=== PATIENT | female | born 1985 | race Asian ===

== ENCOUNTER 2020-04-19 12:03 | Outpatient (CLI) | payer OTHER ==
[2020-04-19 12:30] VITALS: BP 98/50
--- NOTE | 2020-04-20 12:58 | PROCEDURE REPORT ---
- HPI Diagnosis/Indication for NST: Intrauterine growth restriction Current EDU 05/25/20 Gestation 34 Weeks and 6 Days 2 Para 1 Vital Signs Temperature 36.7 C 04/19/20 12:16 Heart Rate 71 04/19/20 12:16 Respiratory Rate 17 04/19/20 12:16 Blood Pressure 98/50 L 04/19/20 12:16 O2 Saturation 98 04/19/20 12:16 Temperature 36.7 C 04/19/20 12:16 Heart Rate 71 04/19/20 12:16 Respiratory Rate 17 04/19/20 12:16 Blood Pressure 98/50 L 04/19/20 12:16 O2 Saturation 98 04/19/20 12:16 - NST Procedure NST Procedure Start Date 04/19/20 Start Time 12:13 Stop Time 12:33 Vibroacoustic Stimulation Used No Patient States Movement Yes - Results and Plan Plan: Radha is a 34yo @ 34.6wks gestation who presents to [facility] for scheduled NST. She reports feeling well. She denies vaginal bleeding, leakage of fluid or contractions and she reports +FM. She denies concerns or complaints today. NST performed 04/19/2020 NST read 04/19/2020 NST reactive. FHR baseline 130s, moderate variability, + accels, no decels No contractions appreciated via tocometry Patient released home with precautions. Keep scheduled visit in the office. Continue with twice weekly NST and once week BPPs as scheduled. FINAL DIAGNOSIS: Suspected IUGR
== END 2020-04-19 12:35 | disposition home or self-care (01) ==
LOC: WFO 12:03 → FBP 12:08 → WFO 12:35
PROVIDERS: ATTEND Nurse Practitioner Obstetrics & Gynecology
DX: O36.5930 Maternal care for other known or suspected poor fetal growth, third trimester, not applicable or unspecified (principal); Z3A.34 34 weeks gestation of pregnancy
CPT/HCPCS: 59025

== ENCOUNTER 2020-04-22 12:02 | Outpatient (CLI) | payer OTHER ==
[2020-04-22 12:20] VITALS: BP 94/55
--- NOTE | 2020-04-22 13:06 | PROCEDURE REPORT ---
- HPI Current EDU 05/25/20 Gestation 35 Weeks and 2 Days 2 Para 1 Vital Signs Temperature 36.6 C 04/22/20 12:16 Heart Rate 75 04/22/20 12:16 Respiratory Rate 16 04/22/20 12:16 Blood Pressure 94/55 L 04/22/20 12:16 O2 Saturation 100 04/22/20 12:16 Temperature 36.6 C 04/22/20 12:16 Heart Rate 75 04/22/20 12:16 Respiratory Rate 16 04/22/20 12:16 Blood Pressure 94/55 L 04/22/20 12:16 O2 Saturation 100 04/22/20 12:16 - NST Procedure NST Procedure Start Date 04/22/20 Start Time 12:15 Stop Time 12:40 Vibroacoustic Stimulation Used No Patient States Movement Yes - Results and Plan Plan: Radha is a 34yo @ 35.2wks gestation who presents to [facility] for scheduled NST. She reports feeling well. She denies vaginal bleeding, leakage of fluid or contractions and she reports +FM. She denies concerns or complaints today. NST performed 04/22/2020 NST read 04/22/2020 NST reactive. FHR baseline 125s, moderate variability, + accels, no decels No contractions appreciated via tocometry Patient released home with precautions. Keep scheduled visit in the office. Continue with twice weekly NST and once week BPPs as scheduled. FINAL DIAGNOSIS: Suspected IUGR
== END 2020-04-22 12:45 | disposition home or self-care (01) ==
LOC: WFO 12:02 → FBP 12:05 → WFO 12:45
PROVIDERS: ATTEND Nurse Practitioner Obstetrics & Gynecology
DX: O36.5930 Maternal care for other known or suspected poor fetal growth, third trimester, not applicable or unspecified (principal); Z3A.35 35 weeks gestation of pregnancy
CPT/HCPCS: 59025

== ENCOUNTER 2020-04-26 15:23 | Outpatient (CLI) | payer OTHER ==
--- NOTE | 2020-04-27 12:33 | Ultrasound Report ---
PROCEDURE: OB F/U or Repeat INDICATIONS: SUSPECTED IUGR OUTSIDE/PRIOR DATING DATA: Last menstrual period (LMP): Not available. LMP-based estimated date of delivery (BENNY): Not available. First dating scan (date and location): 11/05/2019. This study is not available for review. The jayda available documentation report is 01/05/2020 with a ultrasound gestational age from that study rep orted as 05/30/2020. Estimated date of delivery (BENNY) from first dating scan: 05/25/2020. 05/30/2020 as stated above. TECHNIQUE: Real-time scanning was performed of the fetus, with image documentation and biometric measurements. Endovaginal scanning: Not performed COMPARISON: None available FINDINGS: General: A single living intrauterine gestation is present. Presentation: Vertex Placenta: Placental position is posterior, without previa. Amniotic fluid index: 7.0 cm, , lower 3rd percentile for gestational age. Largest pocket located is 5 cm. heart rate: 160 beats per minute. Maternal cervical canal not well seen due to vertex presentation.. biometrics: Biparietal diameter: 8.5 cm, 34 weeks 1 day Head circumference: 30.5 cm, 34 weeks 0 days Abdominal circumference: 29.8 cm, 33 weeks 6 days Femur length: 6.6 cm, 34 weeks 0 days Estimated gestational age from initial scan: 35 weeks 1 day. Composite gestational age from present scan: 34 weeks 0 days Estimated weight and percentile: 2304 g, 16.7 percentile Measurement variability in biometric dating: +/- 10 days from 12-20 weeks gestation, +/- 2 weeks from 20-30 weeks gestation, +/- 3 weeks at 30 weeks gestation or more. Other: Not applicable . IMPRESSION: Oligohydramnios, with current amniotic fluid index of 7.0 cm, at the lower 3rd percentil e. The growth calculations placed the current estimated weight at 2304 g, at the 16.7 per centile. The information related to growth and amniotic fluid index was personally conveyed to the co ordinating nurse provider, Nicole. Reviewed by: Tim Lima MD on 04/27/2020 12:31 PM PST Approved by: Tim Lima MD on 04/27/2020 12:31 PM PST Station ID: [id number]
== END 2020-04-26 15:24 | disposition home or self-care (01) ==
LOC: DI 15:23
PROVIDERS: ATTEND Advanced Practice Midwife
DX: Z36.4 Encounter for antenatal screening for fetal growth retardation (principal); O41.03X0 Oligohydramnios, third trimester, not applicable or unspecified; Z3A.34 34 weeks gestation of pregnancy

== ENCOUNTER 2020-05-06 08:00 | Outpatient (CLI) | payer OTHER | END 2020-05-06 23:59 | disposition home or self-care (01) | LOC: LAB.R 08:00 | PROVIDERS: ATTEND Advanced Practice Midwife | DX: Z34.90 Encounter for supervision of normal pregnancy, unspecified, unspecified trimester (principal); Z36.85 Encounter for antenatal screening for Streptococcus B | CPT/HCPCS: 87797 ==

== ENCOUNTER 2020-05-26 05:36 | Inpatient (IN) | payer OTHER ==
[2020-05-26] MEDS ORDERED: METHYLERGONOVINE 0.2 MG/ML VIAL IM PRN (05:50)
[2020-05-26] MEDS ORDERED: CARBOPROST TROMETHAMINE 250 MCG/ML AMP IM PRN (05:50)
[2020-05-26] MEDS ORDERED: miSOPROStoL 200 MCG TABLET BC PRN (05:50)
[2020-05-26] MEDS ORDERED: OXYTOCIN 10 UNIT/ML VIAL IM PRN (05:50)
[2020-05-26] MEDS ORDERED: SODIUM CHLORIDE FLUSH 0.9% 10 ML SYRINGE IVP PRN (05:50)
[2020-05-26] MEDS ORDERED: LIDOCAINE-MPF 1% 30 ML VIAL ID PRN (05:50)
[2020-05-26] MEDS ORDERED: OXYTOCIN/SODIUM CHLORIDE 500 ML IV PRN (05:50)
[2020-05-26] MEDS ORDERED: TRANEXAMIC ACID IN NACL 1,000 MG/100 ML BAG IV PRN (05:50)
[2020-05-26] MEDS ORDERED: LACTATED RINGERS 1,000 ML IV SCH (06:00)
[2020-05-26 06:26] LABS: BASOPHILS % (AUTO) 0.3 %; EOSINOPHILS # (AUTO) 0.1 10^3/uL (0.0-0.7); EOSINOPHILS % (AUTO) 0.3 %; HCT - HEMATOCRIT 42.4 % (37.0-47.0); HGB - HEMOGLOBIN 13.5 g/dL (12.0-16.0); LYMPHOCYTES # (AUTO) 1.9 10^3/uL (1.5-3.5); LYMPHOCYTES % (AUTO) 12.5 %; MEAN CORPUSCULAR HEMOGLOBIN 26.9 pg (27.0-31.0); MEAN CORPUSCULAR HGB CONC 31.8 g/dL (32.0-36.0); MEAN CORPUSCULAR VOLUME 84.6 fL (81.0-99.0); MEAN PLATELET VOLUME 10.6 fL (7.9-10.8); MONOCYTES # (AUTO) 0.6 10^3/uL (0.0-1.0); NEUTROPHILS # (AUTO) 12.4 10^3/uL (1.5-6.6); NEUTROPHILS % (AUTO) 82.4 %; PLT - PLATELET COUNT 198 10^3/uL (130-450); RED BLOOD COUNT 5.01 10^6/uL (4.20-5.40); RED CELL DISTRIBUTION WIDTH 13.5 % (12.0-15.0); WHITE BLOOD COUNT 15.1 x10^3/uL (4.8-10.8)
--- NOTE | 2020-05-26 07:03 | HISTORY & PHYSICAL EXAMINATION ---
Admit History - Visit Reason Visit Reason: Contractions - : 2 Parity: 1 Premature: 0 Ectopic: 0 : 0 Risk/History: positive: None Complications This : positive: None Smoking Status: Never smoker - Mother's Labs Mother's Blood Type: positive: A Mother's RH: positive: Positive GBS: positive: Group B Step Negative Rubella Status: positive: Immune - Other Maternal History Other Maternal History: -34yo at 39.3wks gestation who presents to Labor and Delivery with reports of contractions that started last night and are every 3-5mins -Reports movement -Denies VB/LOF - care with [facility] which has been adequate after samantha from [facility] at 33.0wks - Complications *Suspected IUGR- with adjusted dates -Dating Criteria LMP 08/18/2020 - BENNY 05/25/2020 Initial US at 10.3 weeks for BENNY 05/29/2020 -OB Hx *G1: 07/03/2018 [facility] VAVD for NR FHT 6#12oz. Female. -Medications * vitamin-daily -Allergies *NKDA -Medical History *Non contributory -Surgical History *None -Family History *Father- HTN *Mother- DM -Social History *Non contributory - Labs, Immunizations, and Findings LMP 08/18/2020 - BENNY 05/25/2020 Initial US at 10.3 weeks for BENNY 05/29/2020 A pos/Rubella immune VZV immune Gentic testing: AFP neg, CF neg FAS: Posterior placenta. 3VC. AF wnl. Incomplete views F/u completion FAS WNL Growth and MAJOR due to size<dates MAJOR 8.9 (largest pocket >5cm)-WNL; EFW 22%tile Glucola 114 [place] GBS at 36.3 weeks -NEG HSV: denies self and partner Breast pump [place] MOD: . Husb: Lee. Desires unmedicated delivery, had with first child (daughter 21months). Boy- Raul pp contraception: POPs PAP:02/2017- awaiting pathology- FAYE resent on 05/05/2020 -SVE per RN /-1/intact at 0548 -Vertex by digital exam - Physical Exam: Normocephalic, atraumatic Abdomen gravid, soft, nontender Edema- none Psych- wnl -FHTs per flowsheet -Assessment *34yo at 39.3wks gestation in active labor * Heart Tones- Category II due to intermittent variable decelerations -Plan *Admit to L&D *Monitoring- Continuous *Comfort measures available- position changes, whirlpool tub, fentanyl, and epidural per maternal preference *Diet/Activity- per maternal preference *Anticipate Meds/Allgy - Allergies Allergies/Adverse Reactions: Allergies Allergy/AdvReac Type Severity Reaction Status Date / Time No Known Drug Allergies Allergy Verified 05/26/20 06:21 Review of Systems - All Other Systems All Other Systems: reports: Reviewed and negative Physical - Abdominal Exam Vital Signs: Temp Pulse Resp BP Pulse Ox 36.7 C 70 20 126/82 H 05/26/20 06:22 05/26/20 06:22 05/26/20 06:22 05/26/20 06:22 Contraction Frequency (min/apart): 2-4 Contraction Intensity: positive: Moderate Uterine Resting Tone: positive: Soft - Monitoring Heart Rate Baseline: 125 Strip Review: positive: Category II (moderate variability, accels 15x15, intermittent variable decelerations) - Presentation Presentation: positive: Vertex - Vaginal Exam Membranes: positive: Membranes intact Dilation (in cm): 6 Effacement (%): 90 Station: positive: -1 Plan for Labor - Plan For Labor I expect patient to be DC'd or transferred within 96 hours.: Yes
[2020-05-26] MEDS ORDERED: SODIUM CHLORIDE FLUSH 0.9% 10 ML SYRINGE IVP SCH (09:00)
[2020-05-26] MEDS ORDERED: diphenhydrAMINE INJ 50 MG/ML VIAL IVP PRN (10:12)
[2020-05-26] MEDS ORDERED: WITCH HAZEL/GLYCERIN 1 PAD TOP PRN (10:59)
[2020-05-26] MEDS ORDERED: HYDROCORTISONE 1% CREAM 28 GM TUBE PR PRN (10:59)
--- NOTE | 2020-05-26 11:05 | DELIVERY NOTE ---
Delivery Note - Labor Labor: positive: Spontaneous - Delivery Method Delivery Method: positive: Spontaneous vaginal delivery - Nuchal Cord Nuchal Cord: positive: Present (tight x1, sommersaulted) - Amniotic Fluid Description Amniotic Fluid Description: positive: Clear - Episiotomy Type Episiotomy Type: positive: None - Laceration Laceration: positive: Perineal (superficial, no repair indicated) - Delivery Outcome Delivery Outcome: positive: Livebirth - [place]: positive: Placed in direct skin contact with mother, Stimulated, Warmer used sex: positive: Male : 2 : 9 - Cord Cord: positive: 3 vessels - Placenta Placenta: positive: Intact, Spontaneous - Estimated Blood Loss Estimated Blood Loss (in cc): 100 - Post Delivery Events Post Delivery Events: positive: No post delivery events - Delivery Comments (Free Text/Narrative) Delivery Comments (Free Text/Narrative): Note: Labor: This 39.3 year old, , @39.3wks gestation by 10.3 week Ultrasound, confirmed by LMP, presented @ 0530 in active labor. Cervix was6/90/-1 and vertex. FHR pattern demonstrated 125 baseline in a Category II pattern, with moderate variability but intermittent variable decelerations. Normal labor course. SROM occurred @ 0742 and amount and color of fluid were noted to be small and clear. She progressed to complete and began spontaneously pushing at 1030. Baby experienced a prolonged bradycardia in the 90-110 range until . Peds to bedside for delivery. : Normal of a 3060gm male , named Raul, on 05/26/2020 @ 1043. Nuchal tight x1, baby sommersaulted through.The was placed on maternal abdomen, stimulated, dried and after quick double clamp by CNM and cutting of the cord by FOB, baby was brought to the warmer by Peds. Apgars 2 at one minute and 9 at five minutes. Pitocin administered via IV for hemostasis. Fundal massage and gentle cord traction applied for active third stage management. Cord blood was obtained. Placenta delivered spontaneously and intact at 1048. Three vessel cord. EBL 100mL. Fourth Stage: Uterine fundus firm and without excessive bleeding. The perineum, vagina, and cervix were inspected and found to be intact with a small superficial perineal opening which did not indicate repair. Vaginal examination revealed a swollen and bruised cervical lip. initiated. Family bonding well. Both mother and baby are in stable condition.
[2020-05-26] MEDS: IBUPROFEN 600 MG TABLET PO SCH ×2 (14:01→20:32)
[2020-05-26] MEDS: ACETAMINOPHEN 500 MG TABLET PO SCH ×2 (14:01→22:03)
[2020-05-26] MEDS: DOCUSATE SODIUM 100 MG CAPSULE PO PRN (22:03)
[2020-05-27] MEDS: IBUPROFEN 600 MG TABLET PO SCH ×4 (03:30→18:11)
[2020-05-27] MEDS: ACETAMINOPHEN 500 MG TABLET PO SCH ×2 (06:14→14:53)
[2020-05-27] MEDS: DOCUSATE SODIUM 100 MG CAPSULE PO PRN (10:50)
--- NOTE | 2020-05-27 13:37 | PROVIDER PROGRESS NOTE ---
Subjective - Prog Note Date Prog Note Date: 05/27/20 Prog Note Time: 13:31 - Subjective Pt reports feeling: Improved Subjective: S: Radha is baby Raul with SNS system with formula held by FOB. They are calm and skilled with this feeding plan. She reports baby has been having some latch and transfer issues and peds is concerned baby has not yet urinated. She feels "fed is best" and is hopeful to exclusively breastfeed after they get through these first few days. She reports her bleeding as normal, soaking about 1/3 of a pad every 2-3 hours. She did pass one dime sized clot with her last urination. Cramping is acceptable and her pain is will controlled with PO pain meds. O: Lochia rubra Fundus firm A: 34yo s/p on pp day 2 Normal recovery difficulties with adequate feeding plan in place P: Continue with routine care Evaluate for discharge home tomorrow Objective - Vital Signs/Intake & Output Vital Signs: Vital Signs x48h Temp Pulse Resp BP Pulse Ox 05/27/20 12:34 36.4 C L 86 19 108/70 98 05/27/20 07:45 36.9 C 73 18 114/71 98 Intake & Output: Intake & Output 05/24/20 05/25/20 05/26/20 05/27/20 23:59 23:59 23:59 23:59 Intake Total 400 Output Total 1300 Balance -1300 400 - Lab Results Fish Bones: 05/26/20 06:10 Other Labs: Lab Results x24hrs 05/26/20 Range/Units 08:10 Coronavirus (PCR) NEGATIVE
[2020-05-28] MEDS: ACETAMINOPHEN 500 MG TABLET PO SCH ×2 (00:14→10:34)
[2020-05-28] MEDS: DOCUSATE SODIUM 100 MG CAPSULE PO PRN ×2 (00:15→10:34)
[2020-05-28] MEDS: IBUPROFEN 600 MG TABLET PO SCH ×2 (00:15→07:02)
[2020-05-28 07:54] VITALS: BP 119/76
--- NOTE | 2020-05-28 09:43 | PROVIDER PROGRESS NOTE ---
Subjective - Prog Note Date Prog Note Date: 05/28/20 Prog Note Time: 09:42 - Subjective Pt reports feeling: Improved Subjective: S: Radha is resting in bed and FOB is holding baby. She is cheerful and reports a great improvement in since yesterday. She reports her bleeding as light. O: Lochia rubra A: 34yo s/p on pp day 3 Normal recovery P: Continue routine care Discharge home today Objective - Vital Signs/Intake & Output Vital Signs: Vital Signs x48h Temp Pulse Resp BP Pulse Ox 05/28/20 07:53 36.7 C 67 18 119/76 98 Intake & Output: Intake & Output 05/25/20 05/26/20 05/27/20 05/28/20 23:59 23:59 23:59 23:59 Intake Total 400 Output Total 1300 Balance -1300 400 - Lab Results Fish Bones: 05/26/20 06:10
--- NOTE | 2020-05-28 09:45 | Discharge Plan ---
Discharge Plan Problem Reviewed?: Yes Disposition: Home, Self Care Condition: Good Diet: Regular Shower Restrictions: No Driving Restrictions: No Weight Bearing: Full Weight Additional Instructions or Follow Up instructions: Follow up with midwifery at 1 and 6 weeks No Smoking: If you smoke, Please STOP! Call for help. Follow-up with: Dahiana Alan ARNP [Provider Admit Priv/Credential] -
--- NOTE | 2020-05-28 09:58 | DISCHARGE SUMMARY ---
Discharge Summary Condition at Discharge: Good Discharge Disposition: 01 Home, Self Care - HPI History of Present Illness: Admit Date 05/26/2020 Discharge Date 05/28/2020 Diagnosis on Admission: 1. A 34yo at 39.3 week intrauterine 2. Early Active Labor 3. Suspected IUGR Diagnosis on Discharge 1. A 34yo s/p spontaneous vaginal delivery on 05/26/2020 2. Normal recovery 3. AGA baby Brief History: She is a patient at [facility] who presented on 05/26/2020 with complaints of contractions. The patient was found to contract every 2 to 4 minutes and her cervix was 6cm dilated, 90%effaced, and -1 station. She progressed physiologically and spontaneously delivered a viable male named Raul. Apgars were 2 and 9- and 1 and 5 minutes respectively. EBL 100mL. The patient has a superficial perineal laceration that did not require repair. She has been doing well in her course. She is ambulating and juliana ating a regular diet. She is urinating without difficulty and her lochia is normal. Her pain is well controlled with oral medications. She will be discharged home today on day #3 without need for prescriptions.She intends to follow up with Midwifery at [facility] in 1, and 6 weeks for routine visit. She has been given precautions to call if she has any worsening fevers, chills, abdominal pain, increased bleeding or foul smelling vaginal lochia. - ALLERGIES Allergies/Adverse Reactions: Allergies Allergy/AdvReac Type Severity Reaction Status Date / Time No Known Drug Allergies Allergy Verified 05/26/20 06:21 - LABS Result Diagrams: 05/26/20 06:10
[2020-05-28] MEDS ORDERED: ALBUTEROL NEB 2.5 MG/3 ML INH ONE (11:43)
--- NOTE | 2020-05-28 13:00 | Labor Flowsheet ---
Labor Flowsheet Datetime Report Generated by CPN: 05/28/2020 13:00 Datetime: 05/26/2020 13:00 Temperature Route: Oral Datetime: 05/26/2020 12:47 Stage of : Recovery VITAL SIGNS NBP Sys/Lois/Mean (mmHg): 117 : 54 : 68 Pulse: 89 Temperature (C): 37.8 Datetime: 05/26/2020 11:01 Respirations: 16 SpO2 (%): 100 Datetime: 05/26/2020 10:42 UTERINE ACTIVITY Monitor Mode: External Quality: Strong Pattern: Normal: <= 5 Contractions in 10 Minutes Resting Tone (Palpate): Relaxed Contraction Comments: pushing with urge Comments: interupted strip while pt pushing, audbile FHT 110s with decelerations into the 90s . pro viders in room Datetime: 05/26/2020 10:29 Frequency (min): 2-5 Duration (sec): 50-70 FHR Baseline Rate : 130 Variability: Moderate 6-25 bpm Accelerations: None Decelerations: Prolonged VAGINAL EXAM Dilatation (cm): 10.0 Effacement (%): 100 Station: 2 Exam by: Dahiana BOUCHERM STAGE 2 Pushing: Coached on Pushing; Urge to Push Pushing Position: Pushing with Contractions Pushing Progress: Descent with Pushing Datetime: 05/26/2020 10:14 Monitor Interventions for FHR: Ultrasound Adjusted Datetime: 05/26/2020 10:12 Patient Position/Activity: Right Lateral Patient Care Comments: peanut ball Datetime: 05/26/2020 09:59 Cervix, Consistency: Soft Datetime: 05/26/2020 09:54 PAIN Pain Coping: Breathing Through Contractions Pain Assessment Comments: increase vaginal pressure COMMUNICATION Communication: Provider at Bedside Communication Comments: dahiana leah cnm LaborFlag: Labor Datetime: 05/26/2020 09:45 ASSESSMENT A Monitor Mode: Telemetry FHR Baseline Changes: No Baseline Change Oxygen Method: Room Air Datetime: 05/26/2020 09:30 Category: Category I Datetime: 05/26/2020 09:15 Comfort Measures: Breathing/Relaxation Datetime: 05/26/2020 06:56 I/O Interventions: Up to BR Datetime: 05/26/2020 06:54 PATIENT CARE IV/Blood Work: IV Saline Locked Datetime: 05/26/2020 06:50 Provider Reviewed Strip: Yes Datetime: 05/26/2020 06:42 Strip Reviewed by: Trey Alan Datetime: 05/26/2020 06:10 Provider Notified (Name): Trey Alan Notification Reason: Status Update; Status; Labor Status
== END 2020-05-28 11:50 | disposition home or self-care (01) | DRG 998 ==
LOC: WFO 05:36 → FBP 05:44 → WFO 05:55 → FBP 14:03
PROVIDERS: ADMIT Advanced Practice Midwife; ATTEND Advanced Practice Midwife
DX: O76 Abnormality in fetal heart rate and rhythm complicating labor and delivery (principal); Z3A.39 39 weeks gestation of pregnancy; Z37.0 Single live birth; O69.1XX0 Labor and delivery complicated by cord around neck, with compression, not applicable or unspecified; O70.0 First degree perineal laceration during delivery; O71.82 Other specified trauma to perineum and vulva; Z20.822 Contact with and (suspected) exposure to COVID-19
CPT/HCPCS: 36415; 85025; 86850; 86900; 86901; 87635; A9270; J7120